=== PATIENT | male | born 1955 | race Caucasian/White ===

== ENCOUNTER → 2016-12-24 | Outpatient (CLI) | payer MEDICARE | END | disposition home or self-care (01) | LOC: RAD 12:13 | DX: M47.892 Other spondylosis, cervical region (principal); M48.02 Spinal stenosis, cervical region; M48.06 Spinal stenosis, lumbar region; M47.897 Other spondylosis, lumbosacral region; M25.78 Osteophyte, vertebrae ==

== ENCOUNTER 2019-05-07 10:59 | Inpatient (IN) | payer MEDICARE ==
[~2019-05-07] VITALS: Ht 187.9 cm; Wt 100.0 kg
[2019-05-07] VITALS (21 sets, daily range): BP systolic 91–143; BP diastolic 50–79
[2019-05-07 12:03] LABS: BASO % 0.3 % (0.0-1.0); EOS # 0.1 10*3/uL (0.0-0.4); EOS % 0.6 % (1.0-4.0); HEMATOCRIT 49.6 % (42.0-52.0); HEMOGLOBIN 16.3 g/dl (14.0-18.0); LYMPH # 1.6 10*3/uL (1.3-4.4); LYMPH % 16.4 % (27.0-41.0); MEAN CELL VOLUME 92.2 fl (80.0-94.0); MEAN CORPUSCULAR HGB 30.3 pg (27.0-31.0); MEAN CORPUSCULAR HGB CONC 32.9 g/dl (33.0-37.0); MEAN PLATELET VOLUME 11.7 fl (9.6-12.3); MONO # 0.6 10*3/uL (0.1-1.0); NEUT # 7.3 10*3/uL (2.3-7.9); NEUT % 76.2 % (47.0-73.0); PLATELET COUNT AUTOMATED 173 10*3/uL (130-400); RED BLOOD COUNT 5.38 10*6/uL (4.50-5.90); RED CELL DISTRI WIDTH 12.5 % (0-14.5); WHITE BLOOD COUNT 9.6 10*3/uL (4.8-10.8)
[2019-05-07 12:13] LABS: ACT PARTIAL THROMBO TIME 27.7 SECONDS (20.0-32.1)
[2019-05-07 12:20] LABS: LIPASE 144 U/L (73-393)
[2019-05-07 12:23] LABS: ALBUMIN 3.8 gm/dl (3.1-4.5); ALKALINE PHOSPHATASE 86 U/L (45-117); BUN 26 mg/dl (7-24); CHLORIDE 108 mmol/L (98-107); CREATININE 1.25 mg/dL (0.70-1.30); POTASSIUM 4.8 mmol/L (3.5-5.1); SGOT/AST 27 IU/L (3-35); SGPT/ALT 39 U/L (12-78); SODIUM 140 mmol/L (136-145); TOTAL PROTEIN 7.1 gm/dL (6.4-8.2)
[2019-05-07 12:25] LABS: TROPONIN I < 0.015 ng/ml (<0.045)
--- NOTE | 2019-05-07 13:45 | NUR ---
A 63, admitted to ICCU, under the services of LEEROY Mckenna DO with a diagnosis of A-FIB Chief complaint is DIZZINESS, SHORTNESS OF BREATH Patient arrived via ambulatory from ER. Monitor applied. Initial assessment completed. Vital signs taken and recorded. LEEROY MCKENNA DO notified of admission to the unit. Orders received. See assessment for past medical history, medications and allergies. Patient and/or family oriented to unit. [facility] ICCU visitation policy reviewed. Clothing/patient valuable form completed. LAWANDA LARIOS
[2019-05-07] MEDS ORDERED: NAPROXEN550 MG PO (13:51)
--- NOTE | 2019-05-07 14:51 | NUR ---
DR NEGRETE HERE TO SEE PT
--- NOTE | 2019-05-07 15:57 | NUR ---
AMIODARONE BOLUS STARTED
--- NOTE | 2019-05-07 19:05 | NUR ---
DR HANEY CALLED FOR CLARIFICATION OF CARDIZEM DRIP CORADONE HAS NOT EFFECTIVED PT HR WHICH IS STILL 130-140, DR HANEY WANTS CARDIZEM LEFT AT 10
[2019-05-08] VITALS (13 sets, daily range): BP systolic 106–136; BP diastolic 64–89
[2019-05-08 06:29] LABS: BASO % 0.3 % (0.0-1.0); EOS # 0.2 10*3/uL (0.0-0.4); EOS % 1.9 % (1.0-4.0); HEMATOCRIT 45.4 % (42.0-52.0); HEMOGLOBIN 14.9 g/dl (14.0-18.0); LYMPH # 2.2 10*3/uL (1.3-4.4); MEAN CELL VOLUME 92.1 fl (80.0-94.0); MEAN CORPUSCULAR HGB 30.2 pg (27.0-31.0); MEAN CORPUSCULAR HGB CONC 32.8 g/dl (33.0-37.0); MEAN PLATELET VOLUME 12.1 fl (9.6-12.3); MONO # 0.8 10*3/uL (0.1-1.0); NEUT # 7.2 10*3/uL (2.3-7.9); NEUT % 68.4 % (47.0-73.0); PLATELET COUNT AUTOMATED 152 10*3/uL (130-400); RED BLOOD COUNT 4.93 10*6/uL (4.50-5.90); RED CELL DISTRI WIDTH 12.6 % (0-14.5); WHITE BLOOD COUNT 10.6 10*3/uL (4.8-10.8)
[2019-05-08 06:39] LABS: BUN 18 mg/dl (7-24); CHLORIDE 110 mmol/L (98-107); POTASSIUM 4.1 mmol/L (3.5-5.1); SODIUM 140 mmol/L (136-145)
[2019-05-08 06:43] LABS: CHOLESTEROL 172 mg/dL (<200); HDL CHOLESTEROL 26 mg/dl (40-60); LDL CHOLESTEROL 127 mg/dL (9-159); TRIGLYCERIDES 97 mg/dl (<150); VLDL CHOLESTEROL 19 mg/dL (6-40)
[2019-05-08 06:50] LABS: THYROID STIM HORMONE (HS) 0.837 uIU/ml (0.358-4.75)
--- NOTE | 2019-05-08 08:56 | NUR ---
PATIENT TO CARDIAC REHAB FOR STRESS TEST.
--- NOTE | 2019-05-08 10:19 | NUR ---
INFORMED SIGNED CONSENT OBTAINED FOR LEXISCAN STRESS WITH DR WATT. RESTING EKG ATRIAL FLUTTER RBBB HR 134 PULSE OX 97% LUNGS CLEAR. PT COMPLETED ONE MINUTE OF A LEXISCAN PROTOCOL WITH PT RECEIVING LEXISCAN 0.4 MG IV OVER 10 SECONDS. PT REMAINED IN FLUTTER. NO ST CHANGES. PT C/O SOB WITH INJECTION. PT REMAINED NPO. CARDIZEM GTTT, SHUT OFF AND DC'D PER DR WATT. LAST RECOVERY HR OF 130 BP 108/72. PT IN STABLE CONDITION, SITTING WITH , AWAITING NUCLEAR IMAGES.
--- NOTE | 2019-05-08 13:48 | NUR ---
Wagon Driller in to see patient. He is currently not in his bed. Will follow up at a later time.
--- NOTE | 2019-05-08 14:10 | NUR ---
PATIENT RETURNED FROM SURGERY FOR ROBE/CARDIOVERSION. NSR PER CM-RATE 60'S. ELVA JIM D/C.
[2019-05-08] MEDS ORDERED: XARE20MG PO (15:09)
--- NOTE | 2019-05-08 15:13 | NUR ---
Margin Clerk in to talk to patient. Patient states lives at home with his . There are 13 steps in the home. Physician: Dr. Storm Gaviria [facility] Home health services: none Patient's level of ADLs: INDEPENDENT Patient has working utilities: yes DME: none Follow-up physician's appointment after d/c: will be made by the hospitalist nurse director upon discharge Does patient want to access PORTAL?: no Discharge plan discussed with patient. His is at his bedside. He lives at home with his . He is independent in his ADLs and ambulation. Discussed home health care services and he denies any home needs at this time. When medically stable he will be discharged to home. His will provide transportation on discharge. CAMELIA LINDSEY
--- NOTE | 2019-05-08 16:00 | NUR ---
PATIENT DISCHARGED TO HOME. ALL PERSONAL BELONGINGS SENT WITH PATIENT. IV AND MARKETING ANALYTICS ANALYST DISCONTINUED. DISCHARGE INSTRUCTIONS GIVEN AND REVIEWED WITH PATIENT. PATIENT INFORMED OF PRESCRIPTION SENT TO [facility].
== END 2019-05-08 16:00 | disposition home or self-care (01) | DRG 309 ==
LOC: ED 10:59 → EDHOLD 12:56 → ICCU 12:56
PROVIDERS: Emergency Medicine; Internal Medicine; ADMIT Internal Medicine
PROC: 4A02XM4 Measurement of Cardiac Total Activity, External Approach (ICD-10-PCS; principal; 2019-05-08)
PROC: 3E073KZ Introduction of Other Diagnostic Substance into Coronary Artery, Percutaneous Approach (ICD-10-PCS; principal; 2019-05-08)
PROC: B24BZZ4 Ultrasonography of Heart with Aorta, Transesophageal (ICD-10-PCS; principal; 2019-05-08)
DX: I48.92 Unspecified atrial flutter (principal); E87.2 Acidosis; R65.10 Systemic inflammatory response syndrome (SIRS) of non-infectious origin without acute organ dysfunction; D68.59 Other primary thrombophilia; R73.9 Hyperglycemia, unspecified; G62.9 Polyneuropathy, unspecified; E55.9 Vitamin D deficiency, unspecified; E53.9 Vitamin B deficiency, unspecified; E87.8 Other disorders of electrolyte and fluid balance, not elsewhere classified; I51.7 Cardiomegaly; I45.10 Unspecified right bundle-branch block; Z90.5 Acquired absence of kidney; Z79.899 Other long term (current) drug therapy; Z85.53 Personal history of malignant neoplasm of renal pelvis; Z01.89 Encounter for other specified special examinations

== ENCOUNTER 2022-09-27 10:16 | Observation (INO) | payer MEDICARE, OTHER ==
[~2022-09-27] VITALS: Ht 185.4 cm; Wt 97.5 kg
[~2022-09-27 10:16] MED LIST changes: -XARELTO1 EACH PO
[2022-09-27 10:32] VITALS: BP 137/85
[2022-09-27 10:57] LABS: HEMATOCRIT 35.3 % (42.0-52.0); LYMPH # 0.6 10*3/uL (1.3-4.4); MEAN CELL VOLUME 89.6 fl (80.0-94.0); MEAN CORPUSCULAR HGB 28.2 pg (27.0-31.0); MEAN CORPUSCULAR HGB CONC 31.4 g/dl (33.0-37.0); MEAN PLATELET VOLUME 10.4 fl (9.6-12.3); MONO # 0.3 10*3/uL (0.1-1.0); MONO % 3.6 % (3.0-9.0); NEUT # 8.6 10*3/uL (2.3-7.9); NEUT % 89.9 % (47.0-73.0); PLATELET COUNT AUTOMATED 285 10*3/uL (130-400); RED BLOOD COUNT 3.94 10*6/uL (4.50-5.90); RED CELL DISTRI WIDTH 13.4 % (0-14.5); WHITE BLOOD COUNT 9.6 10*3/uL (4.8-10.8)
[2022-09-27 11:07] LABS: ACT PARTIAL THROMBO TIME 26.3 SECONDS (20.0-32.1); INTERNATIONAL NORM RATIO 1.1 (2.0-3.5)
[2022-09-27 11:20] LABS: ALKALINE PHOSPHATASE 119 U/L (46-116); BUN 12 mg/dl (9-23); CHLORIDE 102 mmol/L (98-107); POTASSIUM 4.9 mmol/L (3.4-5.1); SGPT/ALT 12 U/L (10-49); TOTAL PROTEIN 7.8 gm/dL (6.0-8.0)
[2022-09-27] MEDS ORDERED: XARE20MG PO (13:27)
[2022-09-27] MEDS ORDERED: XARELTO1 EACH PO (13:27)
== END 2022-09-27 13:35 | disposition home or self-care (01) ==
LOC: ED 10:16 → EDHOLD 12:35
PROVIDERS: Emergency Medicine; ADMIT Internal Medicine; ATTEND Internal Medicine
DX: I82.402 Acute embolism and thrombosis of unspecified deep veins of left lower extremity (principal); Z98.890 Other specified postprocedural states; Z79.899 Other long term (current) drug therapy

== ENCOUNTER → 2022-09-27 | Outpatient (CLI) | payer MEDICARE, OTHER ==
[~2022-09-27] MED LIST: NAPROXEN550 MG PO; XARE20MG PO; XARELTO1 EACH PO
== END | disposition home or self-care (01) ==
LOC: US 09:30
PROVIDERS: ATTEND Orthopaedic Surgery
DX: I82.402 Acute embolism and thrombosis of unspecified deep veins of left lower extremity (principal)

== ENCOUNTER → 2022-11-26 | Outpatient (CLI) | payer MEDICARE, OTHER ==
[~2022-11-26] MED LIST changes: +XARELTO1 EACH PO
[2022-11-26 11:42] LABS: BASO % 0.3 % (0.0-1.0); EOS # 0.2 10*3/uL (0.0-0.4); EOS % 3.2 % (1.0-4.0); HEMATOCRIT 44.1 % (42.0-52.0); LYMPH # 1.2 10*3/uL (1.3-4.4); MEAN CELL VOLUME 87.3 fl (80.0-94.0); MEAN CORPUSCULAR HGB 27.1 pg (27.0-31.0); MEAN CORPUSCULAR HGB CONC 31.1 g/dl (33.0-37.0); MONO # 0.5 10*3/uL (0.1-1.0); MONO % 7.5 % (3.0-9.0); NEUT # 4.6 10*3/uL (2.3-7.9); NEUT % 70.8 % (47.0-73.0); PLATELET COUNT AUTOMATED 188 10*3/uL (130-400); RED BLOOD COUNT 5.05 10*6/uL (4.50-5.90); RED CELL DISTRI WIDTH 15.3 % (0-14.5); WHITE BLOOD COUNT 6.6 10*3/uL (4.8-10.8)
[2022-11-27 05:06] LABS: HBSAG Negative (Negative); HEP B CORE AB, IGM Negative (Negative); HEPATITIS C ANTIBODY Non Reactive (Non Reactive)
[2022-11-27 12:07] LABS: ANTI-RNP ANTIBODIES <0.2 AI (0.0-0.9); CCP ANTIBODIES IGG/IGA 4 units (0-19); LYME INTERPRETATION Lyme Abs Unconfirmed (.)
== END | disposition home or self-care (01) ==
LOC: LAB 11:03
PROVIDERS: ATTEND Orthopaedic Surgery
DX: M19.91 Primary osteoarthritis, unspecified site (principal); R53.83 Other fatigue

== ENCOUNTER → 2023-02-26 | Outpatient (CLI) | payer MEDICARE, OTHER | END | disposition home or self-care (01) | LOC: RESCLI 09:04 | PROVIDERS: ATTEND Student in an Organized Health Care Education/Training Program | DX: I82.409 Acute embolism and thrombosis of unspecified deep veins of unspecified lower extremity (principal); G62.9 Polyneuropathy, unspecified; A69.20 Lyme disease, unspecified; Z79.899 Other long term (current) drug therapy ==

== ENCOUNTER 2024-05-23 01:11 | Inpatient (IN) | payer MEDICARE, OTHER ==
[~2024-05-23] VITALS: Ht 185.4 cm; Wt 95.7 kg
[2024-05-23 01:35] VITALS: BP 152/87
[2024-05-23] MEDS ORDERED: DULOXETINE HCL30 MG PO (01:37)
[2024-05-23] MEDS ORDERED: Ondansetron Hydrochloride 4 MG/2 ML VIAL IV ONE (01:50)
[2024-05-23] MEDS ORDERED: SODIUM CHLORIDE 0.9% 500 ML IV ONE (01:50)
[2024-05-23] MEDS ORDERED: MORPHINE Sulfate 2 MG/ML SYR IV ONE (01:50)
[2024-05-23 02:14] LABS: HEMATOCRIT 46.3 % (42.0-52.0); MEAN CELL VOLUME 90.8 fl (80.0-94.0); MEAN CORPUSCULAR HGB 30.2 pg (27.0-31.0); MEAN CORPUSCULAR HGB CONC 33.3 g/dl (33.0-37.0); MEAN PLATELET VOLUME 10.4 fl (9.6-12.3); PLATELET COUNT AUTOMATED 139 10*3/uL (130-400); RED CELL DISTRI WIDTH 12.6 % (0-14.5); WHITE BLOOD COUNT 23.3 10*3/uL (4.8-10.8)
[2024-05-23 02:19] LABS: BILIRUBIN 1+ (Negative); BLOOD 1+ (Negative); CLARITY Clear (Clear); COLOR Orange (Yellow); GLUCOSE Trace (Negative); KETONE Trace (Negative); LEUKO ESTERASE Trace (Negative); NITRITE Negative (Negative); SPECIFIC GRAVITY 1.025 (1.001-1.030)
[2024-05-23] MEDS ORDERED: IOHEXOL 300 MG/ML 100 ML VIAL IV ONE (02:20)
[2024-05-23 02:29] LABS: MANUAL DIFF REFLEX YES
[2024-05-23 02:33] LABS: ALKALINE PHOSPHATASE 81 U/L (46-116); BUN 12 mg/dl (9-23); CHLORIDE 100 mmol/L (98-107); LIPASE 33 U/L (12-53); POTASSIUM 4.2 mmol/L (3.4-5.1); SGPT/ALT 16 U/L (5-49); TOTAL PROTEIN 7.2 gm/dL (6.0-8.0)
[2024-05-23 02:34] LABS: PLATELET SUFFICIENCY LOW (NORMAL); TOTAL CELLS COUNTED 100 #CELLS
[2024-05-23 02:53] LABS: RBC 16-20 rbc/hpf (0-2)
[2024-05-23 03:00] VITALS: BP 113/67
[2024-05-23] MEDS ORDERED: SODIUM CHLORIDE 0.9% 1,000 ML IV SCH ×2 (03:10→03:55)
[2024-05-23] MEDS ORDERED: Piperacillin Sodium/Tazobact 50 ML IV ONE (03:30)
[2024-05-23] MEDS ORDERED: ACETAMINOPHEN 650 MG SUPP R PRN (03:45)
[2024-05-23] MEDS ORDERED: Magnesium Hydroxide 30 ML UDC PO PRN (03:45)
[2024-05-23] MEDS ORDERED: ACETAMINOPHEN 325 MG TAB PO PRN (03:45)
[2024-05-23] MEDS ORDERED: Acetaminophen/Hydrocodone 5 MG/325 MG TABLET PO PRN (03:45)
[2024-05-23] MEDS ORDERED: Ondansetron Hydrochloride 4 MG/2 ML VIAL IV PRN (03:45)
[2024-05-23] MEDS ORDERED: MORPHINE Sulfate 2 MG/ML SYR IV PRN (03:45)
[2024-05-23] MEDS ORDERED: BISACODYL 5 MG TAB PO PRN (03:45)
[2024-05-23] MEDS ORDERED: BISACODYL 10 MG SUPP R PRN (03:45)
[2024-05-23 04:18] VITALS: BP 107/61
[2024-05-23 07:28] LABS: FREE T4 1.29 ng/dl (0.89-1.76)
[2024-05-23 07:57] VITALS: BP 130/71
[2024-05-23 09:00] LABS: ALKALINE PHOSPHATASE 71 U/L (46-116); BUN 11 mg/dl (9-23); CHLORIDE 104 mmol/L (98-107); POTASSIUM 4.8 mmol/L (3.4-5.1); SGPT/ALT 13 U/L (5-49); TOTAL PROTEIN 6.4 gm/dL (6.0-8.0)
[2024-05-23 09:45] VITALS: BP 119/74
[2024-05-23] MEDS ORDERED: Piperacillin Sodium/Tazobact 50 ML IV SCH (10:00)
[2024-05-23 12:00] VITALS: BP 136/64
[2024-05-23 14:07] LABS: VITAMIN D, 25-HYDROXY 26.4 ng/mL (30-100)
== END 2024-05-23 16:04 | disposition short-term general hospital (02) | DRG 872 ==
LOC: ED 01:11 → EDHOLD 03:38 → 4E 09:39
PROVIDERS: Internal Medicine; Student in an Organized Health Care Education/Training Program; ADMIT Internal Medicine; ATTEND Internal Medicine
DX: A41.9 Sepsis, unspecified organism (principal); E87.1 Hypo-osmolality and hyponatremia; K80.00 Calculus of gallbladder with acute cholecystitis without obstruction; I48.92 Unspecified atrial flutter; R80.0 Isolated proteinuria; R73.9 Hyperglycemia, unspecified; E55.9 Vitamin D deficiency, unspecified; G62.9 Polyneuropathy, unspecified; Z80.1 Family history of malignant neoplasm of trachea, bronchus and lung; Z86.718 Personal history of other venous thrombosis and embolism; Z90.5 Acquired absence of kidney